=== PATIENT | female | born 1955 | race Asian ===

== ENCOUNTER 2023-01-03 11:25 | Emergency (ER) | payer MEDICAID ==
[~2023-01-03] VITALS: Ht 157.5 cm; Wt 54.0 kg
[2023-01-03 11:38] VITALS: BP_SYST 122
--- NOTE | 2023-01-03 11:52 | NUR ---
Placed in room 03 . Placed on escrow clerk, blood pressure machine and pulse oximeter. To gown for exam. Side rails up. Report given to BRITT STEWART AND BRITT CRESPO.
--- NOTE | 2023-01-03 11:53 | NUR ---
Patient BIB daughter from home. Chief Complaint: General malaise post URI infection x2w. Patient reports pain in upper airway/throat when coughing. Patient is a&ox4 with daughter at bedside. Bedrails up, monitor is on.
--- NOTE | 2023-01-03 11:55 | NUR ---
ER Dr. Sofia at bedside examining patient.
[2023-01-03] MEDS ORDERED: DILTIAZEM HCL 60 MG TABLET PO ONE (12:00)
[2023-01-03] MEDS ORDERED: dilTIAZem HCL IVP 5 MG/ML VIAL IVP ONE (12:00)
--- NOTE | 2023-01-03 12:04 | NUR ---
EKG being completed by [facility].
--- NOTE | 2023-01-03 12:19 | NUR ---
CARMELITA SWABBED AND SENT TO LAB
[2023-01-03 12:40] LABS: BASOPHILS % (AUTO) 0.2 % (0.0-2.0); HEMATOCRIT 32.8 % (36-48); LYMPHOCYTES # (AUTO) 0.8 K/uL (1.0-5.5); LYMPHOCYTES % (AUTO) 4.7 % (20.5-51.5); MEAN CORPUSCULAR HEMOGLOBIN 28 pg (27-31); MEAN CORPUSCULAR HGB CONC 34 % (32-36); MEAN CORPUSCULAR VOLUME 84 fL (79.0-98.0); MONOCYTES % (AUTO) 6.4 % (1.7-9.3); NEUTROPHILS # (AUTO) 14.2 K/uL (1.8-7.7); NEUTROPHILS % (AUTO) 88.7 % (40.0-70.0); PLATELET COUNT (AUTO) 260 K/uL (130-430); RED CELL DISTRIBUTION WIDTH 15.1 % (9.0-15.0)
[2023-01-03] MEDS ORDERED: WARF2.5T82 (12:47)
[2023-01-03] MEDS ORDERED: METF-380 PO (12:52)
[2023-01-03] MEDS ORDERED: RESEYE BOTH EYES (12:52)
[2023-01-03] MEDS ORDERED: PROM6.256 PO (12:52)
[2023-01-03] MEDS ORDERED: WARF4TAB68 PO (12:52)
[2023-01-03] MEDS ORDERED: ENAL2.5T39 PO (12:52)
[2023-01-03] MEDS ORDERED: AZEL137S7 (12:52)
[2023-01-03] MEDS ORDERED: LIP20 PO (12:52)
[2023-01-03] MEDS ORDERED: LEVO50CA4 PO (12:52)
[2023-01-03] MEDS ORDERED: DIPH25TA62 PO (12:52)
[2023-01-03] MEDS ORDERED: GLIP2.5T3 PO (12:52)
--- NOTE | 2023-01-03 12:52 | NUR ---
MED REC COMPLETE
--- NOTE | 2023-01-03 12:55 | NUR ---
Patient belongings input into system.
--- NOTE | 2023-01-03 13:06 | NUR ---
NOTIFIED ED ADMITTING, [facility], REGARDING DR. BELCHER'S REQUEST FOR ADMISSION/TRANSFER. PER DR. BELCHER, PT IS STABLE FOR TRANSFER. WILL CONTACT PREMIUM NOTE INTEREST CALCULATOR CLERK REGARDING THIS MATTER. PER FACESHEET: [facility]/MEDICAL- ALTMED
[2023-01-03] MEDS ORDERED: NACL 0.9% 1,000 ML IV ONE (13:15)
--- NOTE | 2023-01-03 13:16 | NUR ---
cintia called back stated nurse residential case manager will callback to get clinical info spoke to eugenio
[2023-01-03 13:25] LABS: INR 5.1 (0.8-1.2); PROTHROMBIN TIME 49.4 SECS (9.5-12.5)
--- NOTE | 2023-01-03 13:44 | NUR ---
Jasmin contacted with query of diagnosis and vital stats. manager corporate responsibility will have MD return call for peer to peer review.
[2023-01-03 13:47] LABS: ANION GAP 10 (5-15); CALCIUM 8.2 mg/dL (8.4-11.0); CHLORIDE 86 mmol/L (98-107); CREATININE 0.92 mg/dL (0.55-1.30); GFR AFRICAN AMERICAN 78 mL/min (>90); GLUCOSE 343 mg/dL (70-99); UREA NITROGEN, BLOOD 12 mg/dL (8-21)
[2023-01-03 13:54] LABS: ALANINE AMINOTRANSFERASE 57 U/L (12-78); ALBUMIN 2.6 g/dL (3.4-4.8); ASPARTATE AMINOTRANSFERASE 43 U/L (10-37); TOTAL BILIRUBIN 1.1 mg/dL (0.0-1.0)
--- NOTE | 2023-01-03 15:04 | NUR ---
Medicated per MD orders. IVF infusing with no s/s of infiltration at this time. Will cont to monitor
--- NOTE | 2023-01-03 15:58 | NUR ---
NO BEDS AT [facility]. [facility] WILL CALL BACK FOR PEER TO PEER SPOKE TO NICOLAS
--- NOTE | 2023-01-03 16:22 | NUR ---
Blood cultures drawn, prior to administration of antibiotic. levaquin started at this time
--- NOTE | 2023-01-03 16:38 | NUR ---
DR. LLOYD, [facility] DOC, SPOKE TO DR. BELCHER REGARDING PT STATUS ON TRANSFER. STATED THEY ARE GOING TO ATTEMPT TO TRANSFER PT TO [facility].
--- NOTE | 2023-01-03 17:35 | NUR ---
TRANSFER INFO [facility] RM: [id number] DR. LLOYD [phone] SPOKE TO YOJANA, INTELLIGENT SYSTEMS ENGINEER YOJANA: [phone] CALL THE CAR [phone]
--- NOTE | 2023-01-03 19:09 | NUR ---
Daughter at bedside
--- NOTE | 2023-01-03 19:22 | NUR ---
Report given to Martha PINON
--- NOTE | 2023-01-03 20:48 | NUR ---
REPORT CALLED TO ZI DAMICO Addendum: 01/03/23 at 2210 by [email or web address] AT [facility]
--- NOTE | 2023-01-03 22:09 | NUR ---
[address] AT BEDSIDE FOR TRANSPORT. REPORT GIVEN AND PT DEPARTED TO [facility].
[2023-01-03 22:14] VITALS: BP_SYST 125
--- NOTE | 2023-01-03 22:15 | NUR ---
Patient to be transferred to [facility]. Is being transferred due to higher level of care. Receiving facility has accepting physician DR LLOYD and available space. ER physician has signed transfer form. Patient or responsible green party has agreed to transfer and signed form. Patient belongings inventoried and will be sent with patient. Copy of nursing notes, lab reports, EKG, Physicians Orders and X-rays to be sent with patient. Report called to MARGAUX at receiving facility. Receiving physician is . ambulance service has been called for transfer. ETA is [id number].
== END 2023-01-03 22:13 | disposition short-term general hospital (02) ==
LOC: SED 11:25
DX: I48.20 Chronic atrial fibrillation, unspecified (principal); J18.9 Pneumonia, unspecified organism; A41.9 Sepsis, unspecified organism; R05.9 Cough, unspecified; R09.81 Nasal congestion; Z79.899 Other long term (current) drug therapy; Z20.822 Contact with and (suspected) exposure to COVID-19
CPT/HCPCS: 99285; 96365; 71045; 96361; 96375; 87426; 80053; 83880; 85025; 85610; 85730; 87040; 84484; 36415; 93005; 83605; 87804 ×2; J3490; J1956; J7030